=== PATIENT | male | born 1950 | race Caucasian/White ===

== ENCOUNTER 2016-10-16 07:39 | Inpatient (IN) | payer MEDICARE, OTHER ==
[2016-10-11 09:43] LABS: BASOPHILS 0.2 %; BASOPHILS ABSOLUTE 0.01 10/3/uL (0.0-0.16); EOSINOPHILS 3.7 %; EOSINOPHILS ABSOLUTE 0.23 10/3/uL (0.0-0.53); HEMATOCRIT 39.4 % (40.0-51.0); HEMOGLOBIN 13.1 g/dL (13.6-17.8); IMMATURE GRANULOCYTES 0.3 %; IMMATURE GRANULOCYTES ABSOLUTE 0.02 10/3/uL (0.0-0.11); LYMPHOCYTES 22.1 %; LYMPHOCYTES ABSOLUTE 1.36 10/3/uL (0.67-4.30); MEAN CORPUS HGB CONC 33.2 g/dL (32.0-36.0); MEAN CORPUSCULAR HEMOGLOB 30.8 pg (26.0-34.0); MEAN PLATELET VOLUME 10.9 fL (9.2-13.0); MONOCYTES 7.5 %; MONOCYTES ABSOLUTE 0.46 10/3/uL (0.21-1.20); NEUTROPHILS 66.2 %; NEUTROPHILS ABSOLUTE 4.06 10/3/uL (2.02-8.40); PLATELET COUNT 118 10/3/uL (150-400); RBC DISTRIBUTION WIDTH 15.8 % (12.0-16.0); RED CELL COUNT 4.25 10/6/uL (4.7-6.1); WHITE BLOOD CELLS 6.1 10/3/uL (4.5-10.5)
[2016-10-11 09:44] LABS: MANUAL DIFF NO %; MEAN CORPUSCULAR VOLUME 92.7 fL (80-100)
[2016-10-11 09:52] LABS: INTERNATIONAL NORMAL RATI 1.6 UNITS (-); PROTIME (NOT ORD) 18.5 SEC (12.0-14.5)
[2016-10-11 09:54] LABS: ASCORBIC ACID (UR NOT ORDER) NEG (NEG); BILIRUBIN, URINE NEGATIVE (NEG); KETONE, URINE NEGATIVE (NEG); LEUKOCYTE ESTERASE(NOT OR TRACE (NEG); WBC (NOT ORDERED) (RFLEX) 4 (0-5)
[2016-10-11 09:55] LABS: CHLORIDE, SERUM 103 MMOL/L (96-112); CO2 (CARBON DIOXIDE) 28 MMOL/L (24-34); GLUCOSE, SERUM 107 MG/DL (60-99); POTASSIUM, SERUM 3.2 MMOL/L (3.5-5.3); SODIUM, SERUM 140 MMOL/L (135-148)
[2016-10-11 09:56] LABS: BUN (BLOOD UREA NITROGEN) 26 MG/DL (6-23); CALCIUM, SERUM 8.7 MG/DL (8.5-10.4); CREATININE 1.49 MG/DL (0.70-1.30); GFR AFRICAN AMERICAN 55 ML/MIN (>=60); GFR NON AFRICAN AMERICAN 48 ML/MIN (>=60)
--- NOTE | ~2016-10-16 | HP ---
History And Physical [facility] [place]. [address] NAME: FAVIAN FULLER : 46 STATUS : DIS IN PAT#: [id number] AGE: 66 ADM/REG DATE : 10/16/16 MR#: [id number] REPORT SERV DATE: 11/10/16 DICTATED BY: DAVID DEUTSCH DATE: 11/10/16 REPORT STATUS : Draft TRANSCRIBED BY: MODL DATE: 11/10/16 DATE OF ADMISSION: 10/16/2016 The patient was admitted for a right femoral to popliteal bypass. CHIEF COMPLAINT: Claudication. HISTORY OF PRESENT ILLNESS: Mr. Fuller is a very pleasant 66-year-old male, presenting with pain and occlusion of the right lower extremity. Extremity is ischemic and shows evidence of severe complex SFA and popliteal arterial obstruction. PHYSICAL EXAMINATION: GENERAL: The patient is alert, awake, and oriented, and neurologically intact. HEAD AND NECK: Without bruit. HEART: Regular rate and rhythm. No murmurs. LUNGS: Clear to auscultation. ABDOMEN: Soft, nontender, no masses. EXTREMITIES: Pulses show +1 femorals bilaterally. The popliteals absent dorsal pedal pulses. Posterior tibial absent bilaterally. No ulcerations or edema noted in the lower extremities. PLAN: Plan is to schedule him for a femoral-popliteal bypass of the right lower extremity. DICTATED BY: BOZENA King/MARIANA David Deutsch M.D. / [id number] CC: Aravind Sutton
--- NOTE | ~2016-10-16 | DS ---
Discharge Summary [facility] [address] [facility] [place]. [address] NAME: FAVIAN REGAN : 46 STATUS : DIS IN PAT#: [id number] AGE: 66 ADM/REG DATE : 10/16/16 MR#: [id number] REPORT SERV DATE: 11/11/16 DICTATED BY: BRE VEE DATE: 11/10/16 REPORT STATUS : Draft TRANSCRIBED BY: MODL DATE: 11/10/16 ADMISSION DATE: 10/16/2016 DISCHARGE DATE: 10/20/2016 He was admitted for a femoral to popliteal bypass of the right lower extremity. Surgery was performed in endovascular operating room. The patient had a right femoral to popliteal bypass. The patient was placed on heparin. Upon surgical completion, he was transferred to CV ICU where he was stable and then transferred to the floor. Patient was discharged on 10/19/2016, discharged on Eliquis. Patient was scheduled to follow up in the office in two to four weeks upon discharge with Dr. Deutsch. If patient has any problems in the interim, patient is to call the office. ROSSY/MARIANA Bre Vee NP / [id number] CC: David Deutsch M.D.
--- NOTE | ~2016-10-16 | OP ---
Record Of Operation [facility] [address] [place]. [address] NAME: FAVIAN REGAN : 46 STATUS : DIS IN PAT#: [id number] AGE: 66 ADM/REG DATE : 10/16/16 MR#: [id number] REPORT SERV DATE: 10/23/16 DICTATED BY: DAVID DEUTSCH DATE: 10/23/16 REPORT STATUS : Draft TRANSCRIBED BY: MODL DATE: 10/23/16 DATE OF PROCEDURE: 10/16/2016 PREPROCEDURE DIAGNOSIS: Severe claudication of the left lower extremity. POSTOPERATIVE DIAGNOSIS: Severe claudication of the left lower extremity. PROCEDURE PERFORMED: Right femoral to below-knee popliteal artery bypass with Distaflo graft. SURGEON: David Deutsch M.D. ANESTHESIA: General. COMPLICATIONS: None. INDICATION FOR PROCEDURE: Secondary to this very pleasant 66-year-old gentleman presenting to the hospital with severe claudication symptoms of the right lower extremity. The patient was recommended to undergo a right femoral to below-knee pop bypass with vein graft. Consent was given. DETAILS OF PROCEDURE: The patient was brought to the endovascular operating room, placed in supine position, prepped and draped in routine sterile fashion with attention to the entire right lower extremity. The endovenous harvesting equipment was then utilized to evaluate the venous structures in the right leg. Dissection proceeded down to the vein into the thigh level and the vein was found not to be adequate for bypass. Secondary to this, exposure of the femoral artery and popliteal artery was then performed. The patient received 5000 units of heparin and the common femoral artery was then clamped proximally and distally. This artery was opened, spatulated, and an end-to-side anastomosis was performed with HS-6 Prolene in a running continuous stitch with a 7 mm Distaflo graft. With this completed, the anastomosis was hemostatic and clamps were removed, however, clamping the bypass. The graft was then passed through the tunnel popliteal level. This was found to be adequate length. The popliteal artery was then dissected free. There was some significant bleeding from the venous tributaries which were oversewn, but the popliteal was defined. The anastomosis was then performed over the tibioperoneal trunk anterior tibial artery region and into the popliteal segment with a Distaflo graft. The artery was opened and spatulated after clamps were placed. The anastomosis was performed with HS-6 Prolene running continuous stitch. This was hemostatic upon completion after flushing maneuvers were performed, and Doppler signal showed improved flow into the tibioperoneal trunk region. With this completed, after adequate hemostasis, the deep layers were closed with Vicryl, Monocryl for the skin, Steri-Strip dressings were applied. The patient tolerated the procedure well. CL/MODL Record Of Operation [address] [address] NAME: FAVIAN REGAN : 46 STATUS : DIS IN PAT#: [id number] AGE: 66 ADM/REG DATE : 10/16/16 MR#: [id number] REPORT SERV DATE: 10/23/16 DICTATED BY: DAVID DEUTSCH DATE: 10/23/16 REPORT STATUS : Draft TRANSCRIBED BY: MODCecile DATE: 10/23/16 David Deutsch M.D. / [id number] CC: Aravind Sutton MICHAEL W
[~2016-10-16 07:39] MED LIST: ALTACE10 MG PO; ASAB PO; ATEN25 PO; COREG12 PO; COREGCR20 PO; COZ50 PO; CRESTOR5 MG PO; DEMA100 PO; ELIQUIS 5 MG TAB5 MG PO; FLOMAX4 PO; GLUCPH PO; IBU400 PO; IMDUR30 PO; KLOR-CON M2020 MEQ PO; NITROII20C TOP; PLAVIX PO; PROBIOTIC PO; Z300 PO; ZOCOR40 PO
[2016-10-16 15:50] LABS: BASOPHILS 0.4 %; BASOPHILS ABSOLUTE 0.02 10/3/uL (0.0-0.16); EOSINOPHILS 2.7 %; EOSINOPHILS ABSOLUTE 0.14 10/3/uL (0.0-0.53); IMMATURE GRANULOCYTES 0.2 %; IMMATURE GRANULOCYTES ABSOLUTE 0.01 10/3/uL (0.0-0.11); LYMPHOCYTES 19.7 %; LYMPHOCYTES ABSOLUTE 1.02 10/3/uL (0.67-4.30); MEAN CORPUS HGB CONC 32.9 g/dL (32.0-36.0); MEAN CORPUSCULAR HEMOGLOB 30.7 pg (26.0-34.0); MEAN CORPUSCULAR VOLUME 93.4 fL (80-100); MONOCYTES 8.9 %; MONOCYTES ABSOLUTE 0.46 10/3/uL (0.21-1.20); NEUTROPHILS 68.1 %; NEUTROPHILS ABSOLUTE 3.52 10/3/uL (2.02-8.40); PLATELET COUNT 94 10/3/uL (150-400); RBC DISTRIBUTION WIDTH 15.8 % (12.0-16.0); WHITE BLOOD CELLS 5.2 10/3/uL (4.5-10.5)
[2016-10-16 15:53] LABS: HEMATOCRIT 31.3 % (40.0-51.0); HEMOGLOBIN 10.3 g/dL (13.6-17.8); MANUAL DIFF NO %; RED CELL COUNT 3.35 10/6/uL (4.7-6.1)
[2016-10-16 16:01] LABS: A/G RATIO 1.1 (0.7-1.9); ALBUMIN 2.8 G/DL (3.5-5.0); ALKALINE PHOSPHATASE 59 U/L (45-117); CALCIUM, SERUM 8.4 MG/DL (8.5-10.4); CHLORIDE, SERUM 108 MMOL/L (96-112); CO2 (CARBON DIOXIDE) 27 MMOL/L (24-34); CREATININE 1.49 MG/DL (0.70-1.30); GFR AFRICAN AMERICAN 55 ML/MIN (>=60); GFR NON AFRICAN AMERICAN 48 ML/MIN (>=60); GLOBULIN 2.6 G/DL (2.5-4.1); GLUCOSE, SERUM 114 MG/DL (60-99); POTASSIUM, SERUM 3.2 MMOL/L (3.5-5.3); SGOT(AST) 10 U/L (5-40); SGPT(ALT) 17 U/L (5-65); SODIUM, SERUM 146 MMOL/L (135-148); TOTAL BILIRUBIN 0.9 MG/DL (0-1.2); TOTAL PROTEIN 5.4 G/DL (6.0-8.5)
[2016-10-16 16:03] LABS: BUN (BLOOD UREA NITROGEN) 30 MG/DL (6-23)
[2016-10-17 03:47] LABS: BASOPHILS 0.1 %; BASOPHILS ABSOLUTE 0.01 10/3/uL (0.0-0.16); EOSINOPHILS 2.3 %; EOSINOPHILS ABSOLUTE 0.19 10/3/uL (0.0-0.53); HEMATOCRIT 31.3 % (40.0-51.0); HEMOGLOBIN 10.3 g/dL (13.6-17.8); IMMATURE GRANULOCYTES 0.2 %; IMMATURE GRANULOCYTES ABSOLUTE 0.02 10/3/uL (0.0-0.11); LYMPHOCYTES 5.8 %; LYMPHOCYTES ABSOLUTE 0.47 10/3/uL (0.67-4.30); MEAN CORPUS HGB CONC 32.9 g/dL (32.0-36.0); MEAN CORPUSCULAR HEMOGLOB 30.7 pg (26.0-34.0); MEAN CORPUSCULAR VOLUME 93.4 fL (80-100); MEAN PLATELET VOLUME 9.8 fL (9.2-13.0); MONOCYTES 6.8 %; MONOCYTES ABSOLUTE 0.55 10/3/uL (0.21-1.20); NEUTROPHILS 84.8 %; NEUTROPHILS ABSOLUTE 6.88 10/3/uL (2.02-8.40); PLATELET COUNT 91 10/3/uL (150-400); RBC DISTRIBUTION WIDTH 15.9 % (12.0-16.0); RED CELL COUNT 3.35 10/6/uL (4.7-6.1)
[2016-10-17 03:51] LABS: MANUAL DIFF NO %; WHITE BLOOD CELLS 8.1 10/3/uL (4.5-10.5)
[2016-10-17 04:01] LABS: BUN (BLOOD UREA NITROGEN) 27 MG/DL (6-23); CHLORIDE, SERUM 105 MMOL/L (96-112); CO2 (CARBON DIOXIDE) 25 MMOL/L (24-34); CREATININE 1.38 MG/DL (0.70-1.30); GFR AFRICAN AMERICAN 60 ML/MIN (>=60); GFR NON AFRICAN AMERICAN 52 ML/MIN (>=60); GLUCOSE, SERUM 114 MG/DL (60-99); POTASSIUM, SERUM 3.6 MMOL/L (3.5-5.3); SODIUM, SERUM 140 MMOL/L (135-148)
[2016-10-20] MEDS ORDERED: PCET PO (10:38)
== END 2016-10-20 11:43 | disposition home health service (06) | DRG 254 ==
LOC: SDC/OF 07:39 → PACU 14:47 → CVICU 15:30 → 2SO 10-17 15:26
PROVIDERS: Specialist
PROC: 041K0JL Bypass Right Femoral Artery to Popliteal Artery with Synthetic Substitute, Open Approach (ICD-10-PCS; principal; 2016-10-16 09:15)
DX: I70.211 Atherosclerosis of native arteries of extremities with intermittent claudication, right leg (principal); E11.22 Type 2 diabetes mellitus with diabetic chronic kidney disease; D69.6 Thrombocytopenia, unspecified; N18.3 Chronic kidney disease, stage 3 (moderate); Z99.81 Dependence on supplemental oxygen; I48.2 Chronic atrial fibrillation; I12.9 Hypertensive chronic kidney disease with stage 1 through stage 4 chronic kidney disease, or unspecified chronic kidney disease; Z23 Encounter for immunization; E66.09 Other obesity due to excess calories; J44.9 Chronic obstructive pulmonary disease, unspecified; F17.210 Nicotine dependence, cigarettes, uncomplicated; I25.10 Atherosclerotic heart disease of native coronary artery without angina pectoris; G47.33 Obstructive sleep apnea (adult) (pediatric); Z80.9 Family history of malignant neoplasm, unspecified; Z95.1 Presence of aortocoronary bypass graft; Z95.5 Presence of coronary angioplasty implant and graft; Z68.35 Body mass index [BMI] 35.0-35.9, adult; Z79.01 Long term (current) use of anticoagulants; Z82.49 Family history of ischemic heart disease and other diseases of the circulatory system
CPT/HCPCS: 71020; 80048; 80053; 81001; 82962; 85025; 85610; 87641; 88304; 88311; 90662; 93005; 97161-GP; A9270-GY; C1768; G0008; G8978-CJ-GP; G8979-CJ-GP; G8980-CJ-GP; J0330; J0690; J1170; J2250; J2370; J2405; J2710; J3010; P9045